=== PATIENT | female | born 1945 | race Caucasian/White ===

== ENCOUNTER 2022-02-26 18:02 | Emergency (ER) | payer OTHER ==
[2022-02-26 18:27] VITALS: BP 122/64; PULSE 70; TEMP 98.3; BMI 23.3
[2022-02-26] MEDS ORDERED: LIDOCAINE HCL 2% (50ML VIAL) SQ ONE (18:51)
[2022-02-26] MEDS ORDERED: LIDOCAINE HCL 2% (20ML MULTI-DOSE VIAL) ONE (18:52)
== END 2022-02-26 19:47 | disposition home or self-care (01) ==
LOC: FER 18:02
PROC: 0PSJXZZ Reposition Left Radius, External Approach (ICD-10-PCS; principal; 2022-02-26)
DX: S52.532A Colles' fracture of left radius, initial encounter for closed fracture (principal); M25.532 Pain in left wrist; W01.0XXA Fall on same level from slipping, tripping and stumbling without subsequent striking against object, initial encounter
CPT/HCPCS: 73110-TC-LT-FY; 73130-TC-LT-FY; 99284-25